=== PATIENT | male | born 1990 | race Caucasian/White ===

== ENCOUNTER 2017-01-25 14:38 | Emergency (ER) | payer BC, OTHER ==
[~2017-01-25] VITALS: Ht 177.8 cm; Wt 100.0 kg
[2017-01-25 14:40] VITALS: Ht 177.8 cm; Wt 100.0 kg
[2017-01-25 15:56] VITALS: TEMP 36.6
[2017-01-25] MEDS ORDERED: LORAZEPAM 1 MG TAB SL STA (16:10)
[2017-01-25 16:13] VITALS: O2SAT 99
[2017-01-25 16:18] LABS: BASO % 0.3 %; BASO ABS # 0.02 K/uL (0-0.2); COMPLETE YES; EOS % 0.4 %; HEMATOCRIT 47.7 % (42-52); IG% 0.3 %; LYMPH % 33.9 %; LYMPH ABS # 2.61 K/uL (1.2-3.4); MEAN CELL VOLUME 89.3 fL (80-100); MEAN CORPUSCULAR HEMOGLOBIN 30.5 pg (25-34); MEAN CORPUSCULAR HGB CONC 34.2 g/dl (32-36); MEAN PLATELET VOLUME 9.1 fL (7.4-10.4); MONO % 9.1 %; PLATELET COUNT 344 K/uL (130-400); RED BLOOD COUNT 5.34 M/uL (4.7-6.1)
--- NOTE | 2017-01-25 16:27 | DIAGNOSTIC IMAGING REPORT ---
CHEST ONE VIEW PORTABLE CLINICAL HISTORY: 26 years-old Male presenting with CHEST PAIN. TECHNIQUE: Portable upright AP view of the chest was obtained. COMPARISON: None. FINDINGS: Cardiomediastinal silhouette normal. Lungs and pleural spaces clear. Osseous structures normal. Upper abdomen normal. IMPRESSION: 1. No acute cardiopulmonary disease. Electronically signed by: Pelon Mcneal M.D. 01/25/2017 4:26 PM Dictated Date/Time: 01/25/2017 4:26 PM
--- NOTE | 2017-01-25 16:32 | EMERGENCY ROOM VISIT NOTE ---
History First contact with patient: 15:54 Chief Complaint: CHEST PAIN Stated Complaint: CHEST PAIN, LEFT ARM COLD/NUMB, BACK PAIN, DIZZY Nursing Triage Summary: pt to the ED with mid lower back and tightness in left arm has hx anxiety felt like he was going to have anxiety attack on way to work bilat hand numbness, then sx got better drove into work then got chest tightness and felt near syncope History of Present Illness The patient is a 26 year old male who presents to the Emergency Room with complaints generalized illness beginning yesterday. Yesterday, he had a headache and body aches. This morning, the patient started to feel panicky when he was filling up his car with gas. He states during this episode his hands were numb, his heart was beating rapidly, and he felt dizzy. He states this was the worst panic attack he has ever had before. Presently, he has tightness in his arm, back pain, and some chest pain when he walks. The patient has a history of anxiety and high blood pressure. He used to take high blood pressure and Ativan medication but notes stopping them two years ago. The patient states he has had increased stress at work and multiple deaths in his family. He does not want to follow up with a dependency case manager. Source of History: patient Onset: yesterday Position: other (generalized) Quality: other (illness) Associated Symptoms: + chest pain, + back pain Note: Pt notes numbness in arm, rapid heart beating. Review of Systems See HPI for pertinent positives & negatives. A total of 10 systems reviewed and were otherwise negative. Past Medical/Surgical History Medical Problems: (1) Anxiety (2) Hypertension Family History No pertinent family history stated. Social History Smokeless Tobacco Use: No Alcohol Use: none Marital Status: in relationship Housing Status: lives with family Occupation Status: employed Current/Historical Medications Scheduled Fish Oil ([place]-3), 1 CAP PO DAILY Glucosamine Sulfate (Glucosamine), 1,000 MG PO DAILY [place] ([place] Herr[place]), 565 MG PO DAILY Multivitamin (Multivitamin), 1 TAB PO DAILY Protein (Protein), 1 DOSE PO DAILY [POST Workout], 1 DOSE PO DAILY [PRE Workout], 1 DOSE PO DAILY Scheduled PRN Lorazepam (Ativan), 0.5 MG PO Q6H PRN for Anxiety/Agitation Physical Exam Vital Signs Date Time Temp Pulse Resp B/P (MAP) Pulse Ox O2 Delivery O2 Flow Rate FiO2 01/25/17 17:29 93 16 185/96 96 01/25/17 16:13 Room Air 01/25/17 16:13 99 Room Air 01/25/17 16:09 86 01/25/17 15:56 36.6 88 20 161/92 92 Room Air 01/25/17 14:40 36.6 94 16 179/85 98 Room Air Physical Exam GENERAL: Patient is a healthy-appearing well-nourished male HEAD: Normocephalic atraumatic EYES: Ocular movements intact pupils equal and react to light OROPHARYNX mucous membranes are moist no exudates present no erythema or edema present NECK: Supple no nuchal rigidity CHEST: Good equal expansion LUNGS: Clear and equal to auscultation CARDIAC: Normal S1 and S2 ABDOMEN: Soft nontender no guarding BACK: No CVA tenderness EXTREMITIES: No pain upon palpation normal muscle strength in all groups no clubbing cyanosis or edema NEURO: Patient is following commands and answering questions appropriately. Alert and oriented x3 Cranial Nerves 2-12 grossly intact Medical Decision & Procedures ER Provider Diagnostic Interpretation: Radiology results as stated below per my review and radiologist interpretation: CHEST ONE VIEW PORTABLE FINDINGS: Cardiomediastinal silhouette normal. Lungs and pleural spaces clear. Osseous structures normal. Upper abdomen normal. IMPRESSION: 1. No acute cardiopulmonary disease. Electronically signed by: Pelon Mcneal M.D. Laboratory Results 01/25/17 16:05 Red Blood Count 5.34, Mean Corpuscular Volume 89.3, Mean Corpuscular Hemoglobin 30.5, Mean Corpuscular Hemoglobin Concent 34.2, Mean Platelet Volume 9.1, Neutrophils (%) (Auto) 56.0, Lymphocytes (%) (Auto) 33.9, Monocytes (%) (Auto) 9.1, Eosinophils (%) (Auto) 0.4, Basophils (%) (Auto) 0.3, Neutrophils # (Auto) 4.32, Lymphocytes # (Auto) 2.61, Monocytes # (Auto) 0.70, Eosinophils # (Auto) 0.03, Basophils # (Auto) 0.02 01/25/17 16:05 Test 01/25/17 16:05 White Blood Count 7.70 K/uL (4.8-10.8) Red Blood Count 5.34 M/uL (4.7-6.1) Hemoglobin 16.3 g/dL (14.0-18.0) Hematocrit 47.7 % (42-52) Mean Corpuscular Volume 89.3 fL (80-100) Mean Corpuscular Hemoglobin 30.5 pg (25-34) Mean Corpuscular Hemoglobin Concent 34.2 g/dl (32-36) Platelet Count 344 K/uL (130-400) Mean Platelet Volume 9.1 fL (7.4-10.4) Neutrophils (%) (Auto) 56.0 % Lymphocytes (%) (Auto) 33.9 % Monocytes (%) (Auto) 9.1 % Eosinophils (%) (Auto) 0.4 % Basophils (%) (Auto) 0.3 % Neutrophils # (Auto) 4.32 K/uL (1.4-6.5) Lymphocytes # (Auto) 2.61 K/uL (1.2-3.4) Monocytes # (Auto) 0.70 K/uL (0.11-0.59) Eosinophils # (Auto) 0.03 K/uL (0-0.5) Basophils # (Auto) 0.02 K/uL (0-0.2) RDW Standard Deviation 42.7 fL (36.4-46.3) RDW Coefficient of Variation 13.0 % (11.5-14.5) Immature Granulocyte % (Auto) 0.3 % Immature Granulocyte # (Auto) 0.02 K/uL (0.00-0.02) Anion Gap 8.0 mmol/L (3-11) Est Creatinine Clear Calc Drug Dose 122.9 ml/min Estimated GFR () 109.2 Estimated GFR (Non- 94.2 BUN/Creatinine Ratio 8.2 (10-20) Calcium Level 9.2 mg/dl (8.5-10.1) Total Bilirubin 0.5 mg/dl (0.2-1) Direct Bilirubin 0.1 mg/dl (0-0.2) Aspartate Amino Transf (AST/SGOT) 42 U/L (15-37) Alanine Aminotransferase (ALT/SGPT) 79 U/L (12-78) Alkaline Phosphatase 51 U/L (45-117) Troponin I 0.015 ng/ml (0-0.045) Total Protein 8.0 gm/dl (6.4-8.2) Albumin 4.0 gm/dl (3.4-5.0) Lipase 171 U/L (73-393) Labs reviewed by ED physician. Medications Administered Medications (Trade) Dose Ordered Sig/Tonie Route Start Time Stop Time Status Last Admin Dose Admin Lorazepam (Ativan Tab) 1 mg NOW STAT SL 01/25/17 16:10 01/25/17 16:11 DC 01/25/17 16:23 1 MG ECG Indication: chest pain Rate (beats per minute): 91 Rhythm: normal sinus Findings: no acute ischemic change, no ectopy ED Course 1603: Past medical records reviewed. The patient was evaluated in room A12A. A complete history and physical examination was performed. 1610: Ativan Tab 1 mg SL. 1659: I offered to get case management involved in the patient's case and he refused. 1714: Upon reexamination the patient is resting. I discussed results and treatment plan with the patient. He verbalizes agreement and understanding. The patient is ready for discharge. Medical Decision Differential diagnosis: Etiologies such as cardiac ischemia, aortic dissection, pulmonary embolism, pneumonia, pneumothorax, musculoskeletal, infections, pericarditis, myocarditis , esophageal rupture, gastrointestinal, as well as others were entertained. This is a 26-year-old male who presents emergency department complaining of bilateral hand and feet numbness and tingling. Patient has a history of anxiety previously 3 years ago. He denies being suicidal or homicidal but states he has been under stress with his job. I offered to get case management involved to that the patient could've close follow-up with a counselor however the patient is adamantly refusing this. This was offered several times. He has a normal EKG as well as a normal troponin. I do not feel that this is heart related. He was given Ativan in the emergency department. Repeat examination revealed much improvement the patient's symptoms. I strongly stressed to the patient the need for follow-up with his primary care physician for his anxiety as well as his hypertension. Patient was in agreement with the treatment plan. Blood Pressure Screening Patient's blood pressure: Elevated blood pressure Blood pressure disposition: Referred to PCP Impression Primary Impression: Hypertension Critical Care The scribe's documentation has been prepared under my direction and personally reviewed by me in its entirety. I confirm that the note above accurately reflects all work, treatment, procedures, and medical decision making performed by me. Departure Information Dispostion Home / Self-Care Prescriptions Lorazepam (ATIVAN) 1 Mg Tab 0.5 MG PO Q6H Y for Anxiety/Agitation, #6 TAB Prov: Ced Haynes MD 01/25/17 Referrals No Doctor, Assigned (PCP) Forms HOME CARE DOCUMENTATION FORM, IMPORTANT VISIT INFORMATION Patient Instructions Anxiety Body Response, Chest Pain - [facility], Hypertension Dc, My [facility] Additional Instructions You were found to have an elevated blood pressure today (>120 sytolic or >90 diastolic). Per medicare guidelines, you need to follow up with this blood pressure screening with your Primary Care Physician (PCP). For a new PCP call [phone]. You received narcotic or benzodiazepene medication while in the emergency room today. This is an addictive medication that may cause drowziness as well as constipation. Do not drive, operate heavy machinery, or drink alcohol under the influence of this medication. You have been examined and treated today on an emergency basis only. This is not a substitute for, or an effort to provide, complete comprehensive medical care. It is impossible to recognize and treat all injuries or illnesses in a single emergency department visit. It is therefore important that you follow up closely with your PCP. Call as soon as possible for an appointment. Thank you for your time and consideration. I look forward to speaking with you again soon. Please don't hesitate to call us if you have any questions. Problem Qualifiers Primary Impression: Hypertension Hypertension type: unspecified Qualified Codes: I10 - Essential (primary) hypertension
[2017-01-25 16:42] LABS: BUN/CREATININE RATIO 8.2 (10-20); CALCIUM 9.2 mg/dl (8.5-10.1); CREATININE 1.08 mg/dl (0.60-1.40); POTASSIUM 3.9 mmol/L (3.5-5.1)
[2017-01-25] MEDS ORDERED: OMEG10007 PO (17:06)
[2017-01-25] MEDS ORDERED: HAWT565C PO (17:06)
[2017-01-25] MEDS ORDERED: GLUC10007 PO (17:06)
[2017-01-25] MEDS ORDERED: PROT1POW PO (17:06)
[2017-01-25] MEDS ORDERED: [UNRECOGNIZED DRUG - OTHER] PO (17:06)
[2017-01-25] MEDS ORDERED: MULT-506 PO (17:06)
[2017-01-25] MEDS ORDERED: PRE WORKOUT PO (17:06)
[2017-01-25] MEDS ORDERED: ATV/1 PO (17:08)
[2017-01-25 17:29] VITALS: BP 185/96; PULSE 93; O2SAT 96
== END 2017-01-25 17:31 | disposition home or self-care (01) ==
LOC: C.EDB 14:42 → C.EDA 17:31
DX: I10 Essential (primary) hypertension (principal); F41.9 Anxiety disorder, unspecified